=== PATIENT | female | born 1985 | race Asian ===

== ENCOUNTER 2020-06-26 16:37 | Emergency (ER) | payer BC, MEDICAID ==
[~2020-06-26] VITALS: Ht 157.5 cm; Wt 88.6 kg
--- NOTE | 2020-06-26 18:51 | NUR ---
BROUGHT PT INTO TRIAGE FOR VITALS RECHECK. PT DENIES ANY CP OR SOB OR PAIN AT THIS TIME. WILL CONTINUE TO MONITOR PT FROM TRIAGE
[2020-06-26] MEDS ORDERED: LISI1TAB32 PO (19:24)
[2020-06-26 19:45] VITALS: BP 217/135
== END 2020-06-26 19:46 | disposition home or self-care (01) ==
LOC: ER 16:38
DX: I10 Essential (primary) hypertension (principal); F17.210 Nicotine dependence, cigarettes, uncomplicated; Z79.899 Other long term (current) drug therapy
CPT/HCPCS: 93005; 99283